=== PATIENT | male | born 1995 | race Two or more races ===

== ENCOUNTER 2018-07-22 17:24 | Emergency (ER) | payer SELFPAY ==
[2018-07-22] MEDS ORDERED: fentaNYL CITR 100 MCG/2 ML AMP ONE (17:35)
--- NOTE | 2018-07-22 17:40 | ER Report ---
History and Physical Time Seen By MD: 17:40 Hx. of Stated Complaint: Pt. was snow skiing at [place] and fell on hisl left shoulder. police lieutenant patrol suspects it's dislocated. HPI/ROS CHIEF COMPLAINT: Left shoulder dislocation HISTORY OF PRESENT ILLNESS: 22-year-old male patient is to emergency room with c omplaint of left shoulder dislocation. Patient states that he was skiing this afternoon and lost control. He states that he was afraid he was going to run into people. He did up wrecking and falling hard onto the left shoulder. Patient was evaluated by deskidding machine operator at that time and they recommended he come in for further evaluation with concerns about possibly having a dislocated shoulder. Patient states he does have fair amount of pain. Patient denies having any numbness or tingling. REVIEW OF SYSTEMS: Respiratory: No cough, no dyspnea. Cardiovascular: No chest pain, no palpitations. Gastrointestinal: No vomiting, no abdominal pain. Musculoskeletal: As noted above Allergies: Coded Allergies: No Known Drug Allergies (Unverified , 07/22/18) Home Meds Active Scripts Hydrocodone Bit/Acetaminophen (HYDROCODON-ACETAMINOPHEN 5-325) 1 Each Tablet, 1 EACH PO Q4-6H PRN for PAIN, #8 TAB Prov:LELAND BIRMINGHAM 07/22/18 Past Medical/Surgical History Patient denies any pertinent medical or surgical history. Reviewed Nurses Notes: Yes Hx Substance Use Disorder: No Constitutional Vital Sign - Last 24 Hours 07/22/18 07/22/18 07/22/18 07/22/18 17:29 17:29 17:34 17:39 Pulse 86 80 100 Resp 8 17 B/P (MAP) 136/98 136/98 (111) Pulse Ox 96 94 95 O2 Delivery Room Air 07/22/18 07/22/18 07/22/18 07/22/18 17:44 17:49 17:54 17:55 Pulse 104 102 87 Resp 12 11 B/P (MAP) 136/81 (99) Pulse Ox 91 96 96 07/22/18 07/22/18 07/22/18 07/22/18 17:59 18:00 18:04 18:09 Pulse 77 71 81 Resp 6 11 10 B/P (MAP) 135/79 (97) Pulse Ox 100 100 100 07/22/18 07/22/18 07/22/1824/19 18:14 18:19 18:24 18:29 Pulse 80 79 95 98 Resp 16 9 16 14 Pulse Ox 100 100 100 100 07/22/18 07/22/18 07/22/18 07/22/18 18:30 18:34 18:39 18:44 Pulse 96 95 100 Resp 10 24 17 B/P (MAP) 125/76 (92) Pulse Ox 99 98 97 07/22/18 07/22/18 07/22/18 07/22/18 18:49 18:54 18:59 19:00 Pulse 91 97 99 Resp 11 12 17 B/P (MAP) 117/71 (86) Pulse Ox 98 97 98 07/22/18 19:04 Pulse 103 Resp 13 Pulse Ox 99 Physical Exam General Appearance: The patient is alert, has no immediate need for airway protection and no current signs of toxicity. Respiratory: Chest is non tender, lungs are clear to auscultation. Cardiac: regular rate and rhythm Gastrointestinal: Abdomen is soft and non tender, no masses, bowel sounds normal. Musculoskeletal: Neck: Neck is supple and non tender. Extremities have full range of motion and are non tender. Patient does have deformity of left shoulder, it does feel like the humeral head is sitting on the anterior chest. Skin: No rashes or lesions. DIFFERENTIAL DIAGNOSIS: After history and physical exam differential diagnosis was considered for fracture, dislocation, sprain. Medical Decision Making EKG/Imaging Imaging SHOULDER MIN 2 VIEWS LEFT Indication: Left shoulder pain after injury. Comparison: Unavailable Findings: 3 views of the left shoulder. Anterior dislocation of the humeral head. Unsure if this mild deformity of the superolateral humeral head. No other indication of fracture. No other dislocation. No bony lesions or periosteal abnormality. Soft tissues are unremarkable. IMPRESSION: 1. Anterior dislocation of the left humeral head. 2. Unsure if there is a mild cavity to the superior lateral humeral head which could represent a Hill-Sachs deformity. However this can be reevaluated on follow-up exam after relocation/post reduction. Report Dictated By: Jose F Puente at 07/22/2018 6:05 PM Report E-Signed By: Jose F Puente at 07/22/2018 6:07 PM ED Course/Re-evaluation ED Course Patient was admitted to an exam room, history and physical were obtained. Differential diagnoses were considered. On examination lungs are clear, heart is regular, abdomen is soft nontender. Patient does have an anterior dislocation left shoulder. X-ray of the left shoulder verified anterior dislocation. The patient was sedated and the shoulder was reduced described below. Patient tolerated procedure well. We did monitor the patient for an hour following the procedure at which time patient had no difficulties. Patient will be discharged home at this time. He is to follow-up with orthopedics for evaluation of ligamentous injury. He is return to emergency room if condition worsens. Patient verbalized understanding and agreement with plan. Procedure: Procedural sedation. A pre-sedation evaluation was completed on the patient at 1745. Patient is an appropriate candidate for procedural sedation. The risks of the sedation were discussed with the patient. A time out was completed. The patient was reevaluated immediately prior to initiation of sedation. The patient was sedated with 10 mg of etomidate. The patient was monitored with continuous pulse oximetry and roof shingler. There were no complications and no significant hypoxemia. I remained at the bedside for the sedation. The total time I spent in the procedural sedation was 10 minutes. Post sedation evaluation: Patient was alert and cooperative, hemodynamically stable with appropriate respiratory status, temperature and pain control without ongoing nausea and vomiting. Sedation was performed by Dr. Birch. Procedure: Dislocation reduction. The shoulder was reduced in the usual fashion without complications. Post reduction the patient's neurovascular exam is normal. Post reduction x-ray demonstrates reduction of the joint to the anatomic position. The procedure was performed by myself. Decision to Disposition Date: Jul 22, 2018 Decision to Disposition Time: 18:50 Depart Departure Latest Vital Signs Vital Signs Date Time Temp Pulse Resp B/P (MAP) Pulse Ox O2 Delivery O2 Flow Rate FiO2 07/22/18 19:04 103 13 99 07/22/18 19:00 117/71 (86) 07/22/18 17:29 Room Air Impression: Primary Impression: Dislocation of left shoulder joint Condition: Improved Disposition: HOME OR SELF-CARE New Scripts Hydrocodone Bit/Acetaminophen (HYDROCODON-ACETAMINOPHEN 5-325) 1 Each Tablet 1 EACH PO Q4-6H PRN for PAIN, #8 TAB Prov: VINNIELELAND SHABNAM 07/22/18 Patient Instructions: Shoulder Dislocation (ED) Additional Instructions: Limit activity by pain. Wear the sling 23/24 hours a day. You may take it off to shower and to get dressed. Get plenty of rest. Ice the shoulder 2-3 times a day. Follow up with: [facility] [id number] [place], [place] Return to the ER if condition worsens. Problem Qualifiers Primary Impression: Dislocation of left shoulder joint Encounter type: initial encounter Qualified Codes: S43.005A - Unspecified dislocation of left shoulder joint, initial encounter LELAND BIRMINGHAM Jul 22, 2018 17:40
[2018-07-22] MEDS ORDERED: ONDANSETRON 4 MG/2 ML VIAL IVP ONE (17:45)
[2018-07-22] MEDS ORDERED: PROPOFOL EMUL 10MG/ML 20 ML VL IVP ONE (17:45)
[2018-07-22] MEDS ORDERED: ETOMIDATE 20 MG/10 ML VIAL IVP ONE (17:55)
--- NOTE | 2018-07-22 18:11 | RADIOLOGY IMAGING REPORT ---
[place]AC[place] [facility] [place]IENT NAME: Jorge Rios : 1995 MR: [id number] V: [id number] EXAM DATE: ORDERING PHYSICIAN: LELAND BIRMINGHAM TECHNOLOGIST: Location: [facility] - [place] Patient: Jorge Rios : 1995 Visit/Account:[id number] Date of Sevice: 07/22/2018 SHOULDER MIN 2 VIEWS LEFT Indication: Left shoulder pain after injury. Comparison: Unavailable Findings: 3 views of the left shoulder. Anterior dislocation of the humeral head. Unsure if this mild deformity of the superolateral humeral head. No other indication of fracture. No other dislocation. No bony le sions or periosteal abnormality. Soft tissues are unremarkable. IMPRESSION: 1. Anterior dislocation of the left humeral head. 2. Unsure if there is a mild cavity to the superior lateral humeral head which could represent a Hill -Sachs deformity. However this can be reevaluated on follow-up exam after relocation/post reduction. Report Dictated By: Jose F Puente at 07/22/2018 6:05 PM Report E-Signed By: Jose F Puente at 07/22/2018 6:07 PM WSN:[id number]
--- NOTE | 2018-07-22 18:25 | RADIOLOGY IMAGING REPORT ---
FAC[place] [facility] [place]IENT NAME: Jorge Rios : 1995 MR: [id number] V: [id number] EXAM DATE: ORDERING PHYSICIAN: LELAND BIRMINGHAM TECHNOLOGIST: Location: [facility] [place] Patient: Jorge Rios : 1995 Visit/Account:[id number] Date of Sevice: 07/22/2018 EXAMINATION: 2 views of the left shoulder HISTORY: Post reduction. COMPARISON: Prior study of earlier today FINDINGS: There has been successful reduction of the prior anterior left glenohumeral dislocation, with normal alignment at the glenohumeral joint on the current exam. There is a Hill-Sachs impaction fracture jacek ng the superolateral aspect of the humeral head, which may be acute or chronic. No other evidence of fracture about the left shoulder. Normal alignment at the acromioclavicular joint. IMPRESSION: 1. Reduction of the prior anterior left glenohumeral dislocation with currently normal alignment. 2. Hill-Sachs impaction fracture along the superolateral left humeral head, of indeterminate chronici ty. Report Dictated By: Cristofer Collins MD at 07/22/2018 6:18 PM Report E-Signed By: Cristofer Collins MD at 07/22/2018 6:21 PM WSN:[id number]
[2018-07-22] MEDS ORDERED: HYDR-385 PO (18:52)
[2018-07-22] MEDS: ACET/HYDROC 5/325MG TH ER ONLY 2 TAB/BOTTLE PO ONE (18:55)
[2018-07-22 19:00] VITALS: BP 117/71
== END 2018-07-22 19:17 | disposition home or self-care (01) ==
LOC: ER 17:55
DX: S43.005A Unspecified dislocation of left shoulder joint, initial encounter (principal); W18.30XA Fall on same level, unspecified, initial encounter; Y93.23 Activity, snow (alpine) (downhill) skiing, snowboarding, sledding, tobogganing and snow tubing
CPT/HCPCS: 23650; 73020; 73030; 94770; 96374; 96375; 99156; 99285; A4565; J2405; J3010; J3490